=== PATIENT | male | born 1965 | race Caucasian/White ===

== ENCOUNTER 2017-01-04 13:12 | Inpatient (IN) | payer OTHER ==
[2017-01-04] VITALS (8 sets, daily range): BP systolic 113–147; BP diastolic 68–79
[~2017-01-04] VITALS: Ht 182.9 cm; Wt 85.7 kg
--- NOTE | 2017-01-04 13:20 | NUR ---
PT AMBULATORY TO ER BED 09. SENT BY PMD FOR LOW HEMOGLOBIN. PT DENIES ANY PAIN AND DISCOMFORT RECEIVING LEAD. GOWNED AND PLACED ON MONITOR. STABLE VITALS NOTED. AWAITING MD WHELAN.
[2017-01-04] MEDS ORDERED: SPIR25TA4 PO (13:33)
[2017-01-04] MEDS ORDERED: CARV6.252 PO (13:33)
[2017-01-04] MEDS ORDERED: LISI-607 PO (13:33)
[2017-01-04] MEDS ORDERED: FURO20TA4 PO (13:33)
--- NOTE | 2017-01-04 13:50 | NUR ---
KELLI FLOYD AT BEDSIDE FOR EVAL.
[2017-01-04 13:53] LABS: CREATININE 0.9 mg/dL (0.6-1.3); POTASSIUM 4.1 mmol/L (3.5-5.1)
--- NOTE | 2017-01-04 13:53 | NUR ---
IV LINE STARTED BLOOD DRAWN AND SENT TO LAB.
[2017-01-04 14:03] LABS: BASOPHILS # (AUTO) 0.1 /CMM (0.0-0.2); BASOPHILS % (AUTO) 1.5 % (0.0-2.0); EOSINOPHILS # (AUTO) 0.1 /CMM (0.0-0.7); EOSINOPHILS % (AUTO) 2.7 % (0.0-6.0); LYMPHOCYTES % (AUTO) 19.2 % (20.0-44.0); MEAN CORPUSCULAR HEMOGLOBIN 24 PG (26.0-33.0); MEAN CORPUSCULAR HGB CONC 31 g/dl (31.0-36.0); MEAN CORPUSCULAR VOLUME 76 fL (80-96); MONOCYTES # (AUTO) 0.6 /CMM (0.1-1.30); MONOCYTES % (AUTO) 11.3 % (2.0-12.0); NEUTROPHILS # (AUTO) 3.4 /CMM (1.8-8.9); NEUTROPHILS % (AUTO) 65.3 % (43.0-81.0); PLATELET COUNT (AUTO) 215 /CMM (150-450); RDW COEFFICIENT OF VARIATION 17.5 (11.5-15.0); RED BLOOD CELL COUNT(AUTO) 2.53 MIL/uL (4.5-6.0); WHITE BLOOD COUNT (AUTO) 5.2 K/uL (4.3-11.0)
[2017-01-04 14:06] LABS: HEMATOCRIT 19 % (39-51); HEMOGLOBIN 5.9 g/dL (13.5-17.5)
[2017-01-04 14:13] LABS: INR 0.99 (0.87-1.13); PROTHROMBIN TIME 10.3 SECS (9.5-12.7)
[2017-01-04] MEDS ORDERED: ASPI81TA2 PO (14:16)
[2017-01-04] MEDS ORDERED: MULT-24 PO (14:16)
--- NOTE | 2017-01-04 14:49 | NUR ---
CALLED DR. LO KHAN @ [phone] SAID FOR PT TO BE ADDMITED TO PANEL
[2017-01-04] MEDS ORDERED: PANTOPRAZOLE 40 MG VIAL IV SCH (15:30)
[2017-01-04] MEDS ORDERED: PANTOPRAZOLE 80 MG in IV NS 0.9% 500 ML IV ONE (15:30)
--- NOTE | 2017-01-04 15:30 | NUR ---
REPORT GIVEN TO DONNY. PT AWAITING TRANSFER TO FLOOR.
[2017-01-04] MEDS ORDERED: PANTOPRAZOLE 40 MG VIAL ONE (15:34)
[2017-01-04 15:52] LABS: LYMPHOCYTES % (MANUAL) 34 % (16-48); NEUTROPHILS % (MANUAL) 60 (42-76)
[2017-01-04 15:53] LABS: MONOCYTES % (MANUAL) 6 % (0-11.0)
--- NOTE | 2017-01-04 16:00 | NUR ---
RN NOTES RECEIVED PT FROM ER, IN STABLE CONDITION. PT ON RA, RESPIRATIONS ARE EVEN AND UNLABORED. IV ON RAC INTACT AND PATENT. PT IS ALERT AND ORIENTED AND AMBULATORY. WILL CONTINUE TO MONITOR.
[2017-01-04] MEDS ORDERED: ONDANSETRON HCL/PF 4 MG/2 ML VIAL IVP PRN (16:30)
[2017-01-04] MEDS ORDERED: Z GUARD REMEDY 2 OZ OINT TP PRN (16:30)
[2017-01-04] MEDS ORDERED: HYDROCODONE/APAP 5/325MG 1 EACH TABLET PO PRN (16:30)
[2017-01-04] MEDS ORDERED: MAG HYDROX/AL HYDROX/SIMETH 30 ML UDC PO PRN (16:30)
[2017-01-04] MEDS ORDERED: MAGNESIUM HYDROXIDE 30 ML UDC PO PRN (16:30)
--- NOTE | 2017-01-04 18:47 | NUR ---
RN NOTES PT IS IN BED, WATCHING TV, RESTING COMFORTABLY. PT ON RA, RESPIRATIONS ARE EVEN AND UNLABORED. IV ON RAC INTACT AND PATENT, RUNNING BLOOD TRANSFUSION AT 120ML/HR. VITAL SIGNS ARE STABLE. SAFETY MEASURES ARE IN PLACE, CALL LIGHT IS IN REACH. WILL ENDORSE TO PHOTOGRAPHER STILL RN FOR CONTINUITY OF CARE.
[2017-01-04] MEDS: PANTOPRAZOLE 40 MG VIAL IV SCH (20:33)
[2017-01-04] MEDS: ACETAMINOPHEN 325 MG TABLET PO PRN (20:33)
--- NOTE | 2017-01-04 21:20 | NUR ---
RN NOTES: CALLED GRAY MATHIS NP, RE PATIENT'S TEMP OF 100.3 AT 1999 PM, BLOOD TRANSFUSION WAS STOPPED, TYLENOL WAS GIVEN AT 2032, AND TEMP WAS DECREASED TO 99.6. NO OTHER SYMPTOMS OF BT REACTION WAS NOTED, NO SOB/ , NO WHEEZING, NO FLANK PAIN, NO HIVES, ITCHING. PER GRAY, DOCUMENT IT A BT REACTION, AND ORDERED FOR 1 MORE UNIT PRBC. NOTED AND CARRIED OUT.
[2017-01-04] MEDS ORDERED: ZOLPIDEM TARTRATE 5 MG TABLET PO PRN (22:00)
--- NOTE | 2017-01-04 22:00 | NUR ---
RN NOTES: BT TUBINGS AND URINE SAMPLE BROUGHT TO LAB.
[2017-01-04 22:03] LABS: BASOPHILS # (AUTO) 0.1 /CMM (0.0-0.2); BASOPHILS % (AUTO) 1.3 % (0.0-2.0); EOSINOPHILS # (AUTO) 0.1 /CMM (0.0-0.7); EOSINOPHILS % (AUTO) 1.8 % (0.0-6.0); LYMPHOCYTES % (AUTO) 24.6 % (20.0-44.0); MEAN CORPUSCULAR HEMOGLOBIN 23 PG (26.0-33.0); MEAN CORPUSCULAR HGB CONC 31 g/dl (31.0-36.0); MEAN CORPUSCULAR VOLUME 75 fL (80-96); MONOCYTES # (AUTO) 0.5 /CMM (0.1-1.30); MONOCYTES % (AUTO) 11.9 % (2.0-12.0); NEUTROPHILS # (AUTO) 2.6 /CMM (1.8-8.9); NEUTROPHILS % (AUTO) 60.4 % (43.0-81.0); PLATELET COUNT (AUTO) 175 /CMM (150-450); RDW COEFFICIENT OF VARIATION 18.2 (11.5-15.0); RED BLOOD CELL COUNT(AUTO) 2.66 MIL/uL (4.5-6.0); WHITE BLOOD COUNT (AUTO) 4.3 K/uL (4.3-11.0)
--- NOTE | 2017-01-04 22:14 | NUR ---
RN NOTES: LAB CALLED FOR CRITICAL HGB: 6.2. GRAY MATHIS ORDERED FOR 1 MORE UNIT (2ND UNIT TOTAL) OF PRBC.
[2017-01-04] MEDS: IV D5/0.45 NACL 1,000 ML IV PRN (22:29)
--- NOTE | 2017-01-04 22:40 | NUR ---
RN NOTES: PATIENT STARTED TO HAVE LEFT SIDED CHEST PAIN, DESCRIBED PRESSURE LIKE. EKG DONE: SINUS RHYTHM WITH SINUS ARRHYTHMIA. CALLED [facility], GRAY MATHIS, CITY CARRIER, RELAYED MOST RECENT HGB OF 6.2, AND THAT PATIENT HAS CHEST PAIN. CITY CARRIER ORDERED FOR MORPHINE 2 MG IV Q 4 PRN FOR MOD TO SEVERE PAIN, AND TO KEEP PATIENT NPO FOR NOW. DR JUÁREZ AT BEDSIDE ALSO TO ASSESS PATIENT, DR JUÁREZ HAS SEEN EKG WELL. ADMNISTERED O2 AT 2 LPM VIA NC. KEPT HOB AT SEMI FOWLERS. WILL CONT TO MONITOR.
[2017-01-04 22:44] LABS: HEMATOCRIT 20 % (39-51); HEMOGLOBIN 6.2 g/dL (13.5-17.5)
[2017-01-04 22:48] LABS: EOSINOPHILS % (MANUAL) 2 % (0-4); LYMPHOCYTES % (MANUAL) 28 % (16-48); MONOCYTES % (MANUAL) 7 % (0-11.0); NEUTROPHILS % (MANUAL) 63 (42-76)
[2017-01-04] MEDS ORDERED: MORPHINE SULFATE INJ 2 MG/ML DISP.SYRIN ONE (23:13)
[2017-01-04] MEDS ORDERED: ACETAMINOPHEN 325 MG TABLET PO ONE (23:30)
[2017-01-04] MEDS ORDERED: MORPHINE SULFATE INJ 2 MG/ML DISP.SYRIN IV PRN (23:30)
[2017-01-04] MEDS ORDERED: FUROSEMIDE 20 MG/2 ML VIAL IV ONE (23:30)
[2017-01-04] MEDS ORDERED: diphenhydrAMINE HCL 25 MG CAPSULE PO ONE (23:30)
[2017-01-04] MEDS ORDERED: FUROSEMIDE 20 MG/2 ML VIAL IV SCH (23:30)
[2017-01-05] VITALS (19 sets, daily range): BP systolic 121–151; BP diastolic 55–103
--- NOTE | 2017-01-05 01:10 | NUR ---
RN NOTES: PER LAB, SINCE PATIENT HAS HAD A RECORDED BT REACTION EARLIER, THEY CANNOT RELEASE THE NEXT UNIT OF PRBC IF THE EMERGENCY BLOOD RELEASE WAIVER FORM HAS BEEN SIGNED BY . CALLED GRAY MATHIS NP, EXPLANIED TO HIM RE BLOOD RELEASE WAIVER FORM THAT HE HAS TO SIGN. ALSO NOTED TO HIM THAT DR JUÁREZ ORDERED FOR PRE MEDS OF BENADRYL AND TYLENOL WELL IV LASIX POST BT. PER CORPORATE TUTOR, OK TO GIVE THE 2ND UNIT OF PRBC ORDERED.
--- NOTE | 2017-01-05 01:36 | NUR ---
RN NOTES: EMERGENCY BLOOD RELEASE WAIVER SIGNED BY GRAY MATHIS NP, AND FAXED TO LAB.
[2017-01-05] MEDS ORDERED: diphenhydrAMINE HCL 25 MG CAPSULE ONE (02:17)
[2017-01-05] MEDS: ACETAMINOPHEN 325 MG TABLET PO PRN (02:20)
--- NOTE | 2017-01-05 02:23 | NUR ---
RN NOTES: PER LAB, 1 UNIT PRBC IS READY. CHECKED PT'S VS, TEMP: 99.4 AT THIS TIME. NOTED THAT TEMP HAS BEEN STARTING TO INCREASE AGAIN. ADMINISTERED TYLENOL 650 MG INSTEAD OF THE ORDERED 325 MG PREMEDICATION PRIOR TO BT THAT WAS ORDERED BY DR JUÁREZ WITH SMALL SIP OF WATER. WILL RECHECK TEMP IN 30 MINS
--- NOTE | 2017-01-05 03:30 | NUR ---
RN NOTES: NOTED RAC PIV FLUSHING WELL WITH NS, BUT WITH POOR BLOOD BACKFLOW WHEN ASSESSED FOR PATENCY PRIOR TO BLOOD TRANSFUSION. NEW PIV STARTED OVER RFA G18.
--- NOTE | 2017-01-05 03:50 | NUR ---
RN NOTES: STARTED 2ND UNIT PRBC SLOWLY AT 75 ML/HR TO CLOSELY MONITOR FOR BT REACTION. VS STABLE, AFEBRILE: TEMP: 98.3, BP: 121/72, HR: 81, RR: 18 O2 SAT 100% ON O2 AT 2 LPM VIA NC. INSTRUCTED PATIENT RE SIGNS/ SYMPTOMS OF BT REACTION. PATIENT VERBALIZED AGREEMENT.
--- NOTE | 2017-01-05 04:20 | NUR ---
RN NOTES: INCREASED BT RATE TO 110 ML/HR. VS STABLE. WILL CONT TO MONITOR.
[2017-01-05] MEDS ORDERED: FUROSEMIDE 20 MG/2 ML VIAL ONE (06:55)
--- NOTE | 2017-01-05 07:05 | NUR ---
RN NOTES: BLOOD TRANSFUSION OF 2ND UNIT PRBC FINISHED, VS STABLE AND RECORDED. NO SIGNS/ SYMPTOMS OF BT REACTION NOTED. ADMINISTERED POST BT LASIX 20 MG IV. WILL CONT TO MONITOR.
--- NOTE | 2017-01-05 08:00 | NUR ---
RN MS OPENING NOTES PATIENT RECEIVED STABLE CONDITION. BEDSIDE RAILS ARE UP X2. PATIENT IS ALERT AND RESTING IN BED AFTER BLOOD TRANSFUSION. BED IS LOCKED AND LOWERED. WILL CONTINUE TO MONITOR. HGB IMPROVED. AWARE.
[2017-01-05] MEDS: PANTOPRAZOLE 40 MG VIAL IV SCH ×2 (08:22→21:01)
[2017-01-05 08:50] LABS: BASOPHILS % (AUTO) 0.5 % (0.0-2.0); EOSINOPHILS # (AUTO) 0.1 /CMM (0.0-0.7); EOSINOPHILS % (AUTO) 1.8 % (0.0-6.0); HEMATOCRIT 26 % (39-51); HEMOGLOBIN 8.2 g/dL (13.5-17.5); LYMPHOCYTES # (AUTO) 0.7 /CMM (0.8-4.8); LYMPHOCYTES % (AUTO) 12.8 % (20.0-44.0); MEAN CORPUSCULAR HEMOGLOBIN 24 PG (26.0-33.0); MEAN CORPUSCULAR HGB CONC 31 g/dl (31.0-36.0); MEAN CORPUSCULAR VOLUME 77 fL (80-96); MONOCYTES # (AUTO) 0.6 /CMM (0.1-1.30); MONOCYTES % (AUTO) 10.2 % (2.0-12.0); NEUTROPHILS # (AUTO) 4.1 /CMM (1.8-8.9); NEUTROPHILS % (AUTO) 74.7 % (43.0-81.0); PLATELET COUNT (AUTO) 182 /CMM (150-450); RDW COEFFICIENT OF VARIATION 17.8 (11.5-15.0); RED BLOOD CELL COUNT(AUTO) 3.43 MIL/uL (4.5-6.0); WHITE BLOOD COUNT (AUTO) 5.5 K/uL (4.3-11.0)
[2017-01-05 09:08] LABS: CALCIUM, SERUM 8.4 mg/dL (8.5-10.1); CREATININE 0.8 mg/dL (0.6-1.3); MAGNESIUM 1.6 mg/dL (1.8-2.4); PHOSPHORUS 3.1 mg/dL (2.5-4.9); POTASSIUM 3.7 mmol/L (3.5-5.1)
[2017-01-05] MEDS: OCTREOTIDE 1,250 MCG in IV NS 0.9% 247.5 ML IV PRN (11:27)
--- NOTE | 2017-01-05 12:22 | NUR ---
Social service consult requested by Med Surg SABINE Choudhury for alcohol abuse. Pt. is a 51 year old male who was admitted to [facility] for GI Bleed. NORBERTO met with pt. bedside. Pt. is alert and oriented x4. Pt. resides alone at [address], [address] in [place]. [place] . Pt. resides with his ex- at this time. Pt. states he is depressed because his fiance' left him. Pt. suffers from anxiety and is not taking any medication for it. NORBERTO encouraged pt. to speak with the doctor regarding his anxiety and depression and possibly take medication for it. Pt. is a heavy alcohol drinker and drinks a fifth of vodka daily. Pt. also uses cocaine occasionally. Pt. has not been in any drug treatment programs in the past and is open to receiving referrals. Pt. has been to AA meeting in the past but its been a very long time. Pt. smokes marijuana once every 3 months and a medical marijuana card. Pt. is not employed and has a trust account. NORBERTO to offer pt. the following resources prior to discharge: List of alcohol and drug treatment programs both outpatient and inpatient and List of AA meetings. Addendum: 01/05/17 at 1623 by EDWIGE THORNTON NORBERTO met with pt. bedside and gave him the following resources: List of alcohol and drug treatment programs both outpatient and inpatient and List of AA meetings.
--- NOTE | 2017-01-05 16:26 | NUR ---
Patient lives locally with his ex-.He is ambulatory and independent with adl's. No DME or homehealth reported.Denies any dc planning needs at this time. Addendum: 01/05/17 at 1627 by MARKOS WEAVER RN Amended: Links added.
[2017-01-05] MEDS: Magnesium 1GM/D5W 100ML PREMIX PIGGYBACK IV SCH ×2 (16:53→17:56)
--- NOTE | 2017-01-05 18:21 | NUR ---
CALIBRATION CHECKER NOTES PT IS RESTING IN BED. MAGNESIUM WAS REPLACED 1GRAM X2. PATIENT IS AWAITING GI CONSULT. BEDSIDE RAILS ARE LOCKED AND LOWERED. BEDSIDE RAILS ARE UP X2. WILL ENDORSE CARE TO LATEXER NURSE FOR NGHIA.
--- NOTE | 2017-01-05 19:30 | NUR ---
CORPORATE SCHEDULER NOTES RECEIVED RESTING COMFORTABLY ON BED,BREATHING REGULAR,NOT IN ANY FORM OF DISTRESS.PRESENT IVF INFUSING WELL AT 75ML/HR RATE.SANDOSTATIN AT 10ML/HR RATE IN PROGRESS.NPO STATUS FOR GI BLEED.PATIENT AWARE.ABLE TO AMBULATE TO THE TOILET.CALL LIGHT IN REACH,NEEDS ANTICIPATED.
[2017-01-05] MEDS: IV D5/0.45 NACL 1,000 ML IV PRN (21:00)
--- NOTE | 2017-01-05 21:00 | NUR ---
MARKETING ANALYTICS SPECIALIST NOTES DUE PROTONIX 40MG IV ADMINISTERED
[2017-01-06] VITALS (7 sets, daily range): BP systolic 103–124; BP diastolic 63–77
--- NOTE | 2017-01-06 05:10 | NUR ---
EXECUTIVE ADMINISTRATIVE ASST NOTES CONSENT SIGNED FOR EGD TODAY BY DR AGUILAR.
--- NOTE | 2017-01-06 07:27 | NUR ---
SUPERINTENDENT OF GENERATION NOTES A/O X4,KEPT NPO EXCEPT MEDS ORDERED.IVF INFUSING,SANDOSTATIN INFUSING,CALL LIGHT IN REACH,NEEDS ATTENDED.
--- NOTE | 2017-01-06 07:30 | NUR ---
DIETITIAN NOTES PATIENT ALERT AND ORIENTED X4, CURRENTLY NPO TODAY FOR EGD WITH DR. AGUILAR, PATIENT AWARE, IVF AND SANDOSTATIN INFUSING AND TOLERATING WELL, PATIENT IS IN NO S/SX OF ANY DISTRESS AT THIS TIME, NEEDS ATTENDED AND MET, SAFETY MEASURES IN PLACED, CALL LIGHT WITHIN REACH, WILL CONTINUE TO MONITOR.
[2017-01-06] MEDS: MULTIVITAMINS,THERAGRAN 1 UDTAB TABLET PO SCH (08:35)
[2017-01-06] MEDS: PANTOPRAZOLE 40 MG VIAL IV SCH ×2 (08:35→20:44)
[2017-01-06] MEDS: ASCORBIC ACID 500 MG TABLET PO SCH (08:35)
[2017-01-06] MEDS: IV D5/0.45 NACL 1,000 ML IV PRN (08:42)
[2017-01-06] MEDS: OCTREOTIDE 1,250 MCG in IV NS 0.9% 247.5 ML IV PRN (12:05)
--- NOTE | 2017-01-06 12:11 | NUR ---
ASSEMBLY MANAGER NOTES NOTED RIGHT AC IV INFILTRATED, PATIENT C/O MILD PAIN, NAOMI SWOLLEN +2, IVF STOPPED, REMOVED IV LINE AND REINSERTED ON LEFT FOREARM 18GAUGE. RIGHT ARM ELEVATED WITH PILLOW.
--- NOTE | 2017-01-06 12:30 | NUR ---
HOME CARE MUSIC THERAPIST NOTES F/U WITH DR. AGUILAR RE: PATIENT'S EGD SCHEDULE, PER MD, "NO SCHEDULED TIME YET", PATIENT MADE AWARE.
[2017-01-06 15:37] LABS: BASOPHILS % (AUTO) 0.4 % (0.0-2.0); EOSINOPHILS # (AUTO) 0.2 /CMM (0.0-0.7); EOSINOPHILS % (AUTO) 2.5 % (0.0-6.0); HEMATOCRIT 26 % (39-51); HEMOGLOBIN 8.1 g/dL (13.5-17.5); LYMPHOCYTES # (AUTO) 0.6 /CMM (0.8-4.8); LYMPHOCYTES % (AUTO) 9.8 % (20.0-44.0); MEAN CORPUSCULAR HEMOGLOBIN 24 PG (26.0-33.0); MEAN CORPUSCULAR HGB CONC 31 g/dl (31.0-36.0); MEAN CORPUSCULAR VOLUME 76 fL (80-96); MONOCYTES # (AUTO) 0.6 /CMM (0.1-1.30); MONOCYTES % (AUTO) 8.9 % (2.0-12.0); NEUTROPHILS # (AUTO) 5.2 /CMM (1.8-8.9); NEUTROPHILS % (AUTO) 78.4 % (43.0-81.0); PLATELET COUNT (AUTO) 207 /CMM (150-450); RED BLOOD CELL COUNT(AUTO) 3.41 MIL/uL (4.5-6.0); WHITE BLOOD COUNT (AUTO) 6.6 K/uL (4.3-11.0)
--- NOTE | 2017-01-06 17:30 | NUR ---
RN MS NOTES PATIENT TRANSFERRED TO OR FOR EGD WITH DR. AGUILAR.
[2017-01-06] MEDS ORDERED: SIMETHICONE SUSP 40 MG/0.6 ML BOTTLE ONE (18:00)
--- NOTE | 2017-01-06 18:30 | NUR ---
RN MS NOTES PATIENT CAME BACK FROM OR, PER MD, FOUND GASTRITIS AND HIATAL HERNIA, WITH NEW ORDER FOR ADAT, REGULAR OK, ORDER NOTED AND CARRIED OUT. PATIENT ALERT AND ORIENTED, NO DISTRESS NOTED. DENIES PAIN OR DISCOMFORT, NEEDS ATTENDED AND MET, CALL LIGHT WITHIN REACH, VS TO BE MONITORED, WILL ENDORSE TO FRONT END SOFTWARE DEVELOPER FOR NGHIA.
[2017-01-06] MEDS ORDERED: ANESTHESIA TRAY IN PYXIS 1 EA TRAY MC ONE (18:40)
--- NOTE | 2017-01-06 19:20 | NUR ---
MS/RN OPENING NOTES PT AWAKE, HOB. ON ROOM AIR, BREATHING EVEN AND UNLABORED. DENIES PAIN AND SOB. NO S/S OF DISTRESS NOTED. IV TO LFA AND RFA PATENT AND INTACT. S/P EGD TODAY WITH DR. AGUILAR. BED IN LOW/LOCKED POSITION, CALL LIGHT IN REACH. SIDE RAILS UPX2. WILL CONTINUE TO MONITOR
--- NOTE | 2017-01-06 21:00 | NUR ---
MS/RN NOTES PT NOTED SOME CRAMPING IN BILATERAL HAND. OFFERED HEATING PACK. RECHECKED PT AND STATED CRAMPING HAS RESOLVED.
--- NOTE | 2017-01-07 06:32 | NUR ---
MS/RN CLOSING NOTES PT ASLEEP, EASILY AROUSABLE TO NAME. A/OX4, ON RA, BREATHING EVEN AND UNLABORED. DENIES PAIN. IV TO LFA AND RFA PATENT AND INTACT. MADE PT COMFORTABLE DURING SHIFT. NO S/S OF BLEEDING NOTED. ALL NEEDS MET. BED IN LOW/LOCKED POSITION, CALL LIGHT IN REACH. SIDE RAILS UPX2. WILL ENDORSE TO AM SHIFT NGHIA.
--- NOTE | 2017-01-07 07:57 | NUR ---
RN NOTES RECEIVED PT. PT IS A/OX4, NO S/S OF DISTRESS OR SOB. PT IS ON RA AND O2 SAT>95%. NO C/O PAIN AT THIS TIME. RIGHT ARM EDEMA NOTED. IV ACCESS LOCATED ON RIGHT FA 18G SL, AND L EFT FA 18G RUNNING D5 1/2 NS AT 75 ML/HR. SAFETY MEASURES IN PLACE, CALL LIGHT WITHIN REACH. WILL CONTINUE TO MONITOR.
[2017-01-07 08:00] VITALS: BP 121/78
[2017-01-07] MEDS: ASCORBIC ACID 500 MG TABLET PO SCH (08:48)
[2017-01-07] MEDS: MULTIVITAMINS,THERAGRAN 1 UDTAB TABLET PO SCH (08:48)
[2017-01-07] MEDS: PANTOPRAZOLE 40 MG VIAL IV SCH ×2 (08:48→21:09)
[2017-01-07] MEDS: LORAZEPAM INJ 2 MG/ML VIAL IV PRN (14:25)
[2017-01-07 16:00] VITALS: BP 124/72
--- NOTE | 2017-01-07 18:48 | NUR ---
RN CLOSING NOTES PT IS IN BED RESTING. A/OX4. NO S/S OF DISTRESS OR SOB. NO C/O PAIN AT THIS TIME. ALL PT NEEDS ANTICIPATED AND MET. SAFETY MEASURES IN PLACE, CALL LIGHT WITHIN REACH. WILL ENDORSE TO SENIOR PYTHON DEVELOPER FOR NGHIA.
--- NOTE | 2017-01-07 19:20 | NUR ---
MS/RN OPENING NOTES PT RECEIVED AWAKE, RESTING COMFORTABLY IN BED. SEMI FOWLERS. ON ROOM AIR, BREATHING EVEN AND UNLABORED. DENIES SOB OR PAIN AT THIS TIME. IV TO RFA AND LFA PATENT AND INTACT. BED IN LOW/LOCKED POSITION, CALL LIGHT IN REACH. SIDE RAILS UPX2. WILL CONTINUE TO MONITOR
[2017-01-07 20:00] VITALS: BP 119/61
[2017-01-07 20:32] VITALS: BP 119/61
[2017-01-08] MEDS: LORAZEPAM INJ 2 MG/ML VIAL IV PRN (00:28)
--- NOTE | 2017-01-08 07:08 | NUR ---
MS/RN NOTES PT ASLEEP, BREATHING EVEN AND UNLABORED. NO S/S OF SOB OR PAIN. ON ROOM AIR. IV TO RFA AND LFA PATENT AND INTACT. MADE PT COMFORTABLE DURING SHIFT. SLEPT WELL DURING THE NIGHT. ALL NEEDS MET. BED IN LOW/LOCKED POSITION, CALL LIGHT IN REACH. SIDE RAILS UPX2. ENDORSED TO AM SHIFT NGHIA.
--- NOTE | 2017-01-08 07:10 | NUR ---
PT IS IN BED, SLEEPING COMFORTABLY. PT ON RA, RESPIRATIONS ARE EVEN AND UNLABORED. IV ON LFA INTACT AND PATENT, RUNNING D51/2 NS @75 ML/HR. SAFETY MEASURES ARE IN PLACE. CALL LIGHT IS IN REACH. WILL CONTINUE TO MONITOR.
[2017-01-08 08:00] VITALS: BP 110/80
[2017-01-08] MEDS: PANTOPRAZOLE 40 MG VIAL IV SCH (08:41)
[2017-01-08] MEDS: MULTIVITAMINS,THERAGRAN 1 UDTAB TABLET PO SCH (08:41)
[2017-01-08] MEDS: ASCORBIC ACID 500 MG TABLET PO SCH (08:41)
[2017-01-08 10:21] LABS: BASOPHILS % (AUTO) 0.6 % (0.0-2.0); EOSINOPHILS # (AUTO) 0.1 /CMM (0.0-0.7); EOSINOPHILS % (AUTO) 1.7 % (0.0-6.0); HEMATOCRIT 26 % (39-51); HEMOGLOBIN 8.1 g/dL (13.5-17.5); LYMPHOCYTES # (AUTO) 0.8 /CMM (0.8-4.8); LYMPHOCYTES % (AUTO) 12.1 % (20.0-44.0); MEAN CORPUSCULAR HEMOGLOBIN 24 PG (26.0-33.0); MEAN CORPUSCULAR HGB CONC 31 g/dl (31.0-36.0); MEAN CORPUSCULAR VOLUME 77 fL (80-96); MONOCYTES # (AUTO) 0.6 /CMM (0.1-1.30); MONOCYTES % (AUTO) 8.6 % (2.0-12.0); NEUTROPHILS # (AUTO) 5.2 /CMM (1.8-8.9); PLATELET COUNT (AUTO) 187 /CMM (150-450); RDW COEFFICIENT OF VARIATION 18.3 (11.5-15.0); RED BLOOD CELL COUNT(AUTO) 3.37 MIL/uL (4.5-6.0); WHITE BLOOD COUNT (AUTO) 6.7 K/uL (4.3-11.0)
[2017-01-08] MEDS ORDERED: PANT40TA2 PO (10:35)
[2017-01-08] MEDS ORDERED: LORA1TAB82 PO (10:35)
--- NOTE | 2017-01-08 13:50 | NUR ---
PT WAS DISCHARGED TO HOME IN STABLE CONDITION. PT IS AWAKE AND ALERT, NO SIGNS OF DISTRESS. BELONGINGS LIST AND DISCHARGE PAPERS WERE SIGNED. PT WAS TOLD TO FOLLOW UP WITH PCP WITHIN 2 WEEKS AND HE STATED HE WOULD MAKE HIS APPOINTMENT ON HIS OWN. PT WAS EDUCATED ON NEW PRESCRIPTIONS AND UNDERSTANDS TO GET THEM FROM HIS PHARMACY. IVS WERE REMOVED. ALL BELONGINGS WERE TAKEN WITH PT. PT WAS PICKED UP BY MOTHER IN A PRIVATE CAR.
== END 2017-01-08 16:20 | disposition home or self-care (01) | DRG 254 ==
LOC: ER 13:16 → TELE 15:18 → MED 01-06 17:07
PROVIDERS: ADMIT Internal Medicine; ATTEND Internal Medicine
PROC: 30233N1 Transfusion of Nonautologous Red Blood Cells into Peripheral Vein, Percutaneous Approach (ICD-10-PCS; principal; 2017-01-04)
PROC: 0DB68ZX Excision of Stomach, Via Natural or Artificial Opening Endoscopic, Diagnostic (ICD-10-PCS; 2017-01-06)
DX: K31.89 Other diseases of stomach and duodenum (principal); K76.6 Portal hypertension; I42.6 Alcoholic cardiomyopathy; E46 Unspecified protein-calorie malnutrition; E83.42 Hypomagnesemia; D62 Acute posthemorrhagic anemia; Z88.0 Allergy status to penicillin; I10 Essential (primary) hypertension; F14.90 Cocaine use, unspecified, uncomplicated; D64.9 Anemia, unspecified; Z79.82 Long term (current) use of aspirin; Z98.890 Other specified postprocedural states; Z79.899 Other long term (current) drug therapy; F10.188 Alcohol abuse with other alcohol-induced disorder; Z72.0 Tobacco use; K44.9 Diaphragmatic hernia without obstruction or gangrene
CPT/HCPCS: 36415; 80048-TC; 82272-TC; 83735-TC; 84100-TC; 84484-TC; 85025-TC; 85730-TC; 86850-TC; 86921-TC; 88305-TC; 88313-TC; 88342; 93307-TC; A4606; C9113; J1940; J2060; J2270; J2354; J2704; J3475; J3490; J7040; J7050; P9016-BL; Q0163; Z7610